=== PATIENT | female | born 1950 | race Caucasian/White ===

== ENCOUNTER 2024-01-13 06:17 | Inpatient (IN) | payer MEDICARE, OTHER ==
[~2024-01-13] VITALS: Ht 157.5 cm; Wt 81.6 kg
[2024-01-13] MEDS ORDERED: ANESTHESIA TRAY IN PYXIS 1 EA TRAY MC ONE (07:06)
[2024-01-13] MEDS ORDERED: VANCOMYCIN 1 GM VIAL ONE (07:06)
[2024-01-13] MEDS ORDERED: LIDOCAINE 2%-EPI 1:100,000 30 ML VIAL ONE (07:06)
[2024-01-13] MEDS ORDERED: dexaMETHasone SOD PHOSPHATE 2 ML ONE (07:06)
[2024-01-13] MEDS ORDERED: FENTANYL PF 100MCG/2ML AMPUL ONE (07:17)
[2024-01-13] MEDS ORDERED: OXYMETAZOLINE HCL NASAL SPRAY 30 ML BOTTLE NS ONE (07:17)
[2024-01-13] MEDS ORDERED: Magnesium 1 GM/2 ML VIAL ONE (07:17)
[2024-01-13] MEDS ORDERED: FAMOTIDINE/PF INJ 20 MG/2 ML VIAL IV ONE (07:18)
[2024-01-13] MEDS ORDERED: ROCURONIUM BROMIDE 50 MG/5 ML ONE (07:18)
[2024-01-13] MEDS ORDERED: LABETALOL 20 MG/4 ML VIAL ONE (09:29)
[2024-01-13] MEDS ORDERED: CELLULOSE,OXIDIZED 1 EA PACK MC ONE (10:54)
[2024-01-13] MEDS ORDERED: CELLULOSE,OXIDIZED 1 PKT EACH MC ONE (10:54)
[2024-01-13] MEDS: ONDANSETRON HCL/PF 4 MG/2 ML VIAL IVP PRN (12:25)
[2024-01-13] MEDS: HYDROMORPHONE 1 MG/1 ML DISP.SYRIN IV PRN (12:26)
[2024-01-13] MEDS ORDERED: ONDANSETRON HCL/PF 4 MG/2 ML VIAL IVP PRN (13:00)
[2024-01-13] MEDS ORDERED: ACETAMINOPHEN 325 MG TABLET PO PRN (13:00)
[2024-01-13] MEDS ORDERED: MORPHINE SULFATE INJ 2 MG/ML DISP.SYRIN IV PRN (13:00)
[2024-01-13] MEDS ORDERED: MAGNESIUM HYDROXIDE 30 ML UDC PO PRN (13:00)
[2024-01-13] MEDS: IV NS 0.9% 1,000 ML IV PRN (13:19)
[2024-01-13] MEDS ORDERED: MECL-182 PO (13:25)
[2024-01-13] MEDS ORDERED: TRAM100T39 PO (13:25)
[2024-01-13] MEDS ORDERED: VALS160T2 PO (13:25)
[2024-01-13] MEDS ORDERED: FAMO20TA80 PO (13:25)
[2024-01-13 16:00] VITALS: BP 137/78; TEMP 97.7; O2SAT 94
[2024-01-13] MEDS ORDERED: LORAZEPAM 1 MG TABLET PO PRN (16:00)
[2024-01-13] MEDS: LORAZEPAM 1 MG TABLET PO ONE (16:24)
[2024-01-13] MEDS ORDERED: VALSARTAN 80 MG TABLET PO PRN (16:30)
[2024-01-13] MEDS: VANCOMYCIN 1 GM in IV D5W 250ml IV SCH (18:39)
[2024-01-13] MEDS: ACETAMINOPHEN 325 MG TABLET PO PRN (19:47)
[2024-01-13 20:00] VITALS: BP 124/74; TEMP 97.7; O2SAT 96
[2024-01-14 07:00] VITALS: BP 134/72; TEMP 98.4; O2SAT 95
[2024-01-14 07:02] LABS: BASOPHILS % (AUTO) 0.1 % (0.0-2.0); HEMATOCRIT 36 % (33-45); HEMOGLOBIN 12.1 g/dL (11.5-14.8); LYMPHOCYTES # (AUTO) 1.3 K/uL (0.8-4.8); LYMPHOCYTES % (AUTO) 14.6 % (20.0-44.0); MEAN CORPUSCULAR HEMOGLOBIN 31 PG (26.0-33.0); MEAN CORPUSCULAR HGB CONC 34 g/dl (31.0-36.0); MEAN CORPUSCULAR VOLUME 92 fL (82-100); MONOCYTES # (AUTO) 0.7 K/uL (0.1-1.30); MONOCYTES % (AUTO) 8.1 % (2.0-12.0); NEUTROPHILS # (AUTO) 6.9 K/uL (1.8-8.9); NEUTROPHILS % (AUTO) 77.2 % (43.0-81.0); PLATELET COUNT (AUTO) 196 K/uL (150-450); RED BLOOD CELL COUNT(AUTO) 3.93 MIL/uL (4.0-5.2); RED CELL DISTRIBUTION WIDTH 13.5 % (11.5-15.0); WHITE BLOOD COUNT (AUTO) 8.9 K/uL (4.3-11.0)
[2024-01-14 07:33] LABS: ALANINE AMINOTRANSFERASE 9 U/L (12-78); ALBUMIN 2.9 g/dL (3.4-5.0); ALKALINE PHOSPHATASE 53 U/L (46-116); ASPARTATE AMINOTRANSFERASE 7 U/L (15-37); BILIRUBIN,TOTAL 0.7 mg/dL (0.2-1.0); CALCIUM, SERUM 8.8 mg/dL (8.5-10.1); CARBON DIOXIDE 23 mmol/L (21-32); CHLORIDE 107 mmol/L (98-107); CREATININE 0.4 mg/dL (0.6-1.3); GLUCOSE 130 mg/dL (74-106); MAGNESIUM 2.3 mg/dL (1.8-2.4); PHOSPHORUS 2.7 mg/dL (2.5-4.9); POTASSIUM 4.1 mmol/L (3.5-5.1); SODIUM SERUM 140 mmol/L (136-145); TOTAL PROTEIN, SERUM 6.4 g/dL (6.4-8.2); UREA NITROGEN, BLOOD 9 mg/dL (7-18)
== END 2024-01-14 12:30 | disposition home or self-care (01) | DRG 517 ==
LOC: DS 06:17 → MED 12:21
PROVIDERS: ADMIT Internal Medicine; ATTEND Internal Medicine
PROC: 0NUR0JZ Supplement Maxilla with Synthetic Substitute, Open Approach (ICD-10-PCS; principal; 2024-01-13)
PROC: 0NUR07Z Supplement Maxilla with Autologous Tissue Substitute, Open Approach (ICD-10-PCS; 2024-01-13)
PROC: 0NHV04Z Insertion of Internal Fixation Device into Left Mandible, Open Approach (ICD-10-PCS; 2024-01-13)
PROC: 0NHR04Z Insertion of Internal Fixation Device into Maxilla, Open Approach (ICD-10-PCS; 2024-01-13)
PROC: 0NHT04Z Insertion of Internal Fixation Device into Right Mandible, Open Approach (ICD-10-PCS; 2024-01-13)
PROC: 0NUV07Z Supplement Left Mandible with Autologous Tissue Substitute, Open Approach (ICD-10-PCS; 2024-01-13)
PROC: 0NUT07Z Supplement Right Mandible with Autologous Tissue Substitute, Open Approach (ICD-10-PCS; 2024-01-13)
PROC: 0CB40ZZ Excision of Buccal Mucosa, Open Approach (ICD-10-PCS; 2024-01-13)
PROC: 0NBV0ZX Excision of Left Mandible, Open Approach, Diagnostic (ICD-10-PCS; 2024-01-13)
PROC: 0NBR0ZX Excision of Maxilla, Open Approach, Diagnostic (ICD-10-PCS; 2024-01-13)
PROC: 0NBT0ZX Excision of Right Mandible, Open Approach, Diagnostic (ICD-10-PCS; 2024-01-13)
DX: S02.40CK Maxillary fracture, right side, subsequent encounter for fracture with nonunion (principal); S02.40DK Maxillary fracture, left side, subsequent encounter for fracture with nonunion; S02.69XK Fracture of mandible of other specified site, subsequent encounter for fracture with nonunion; M27.2 Inflammatory conditions of jaws; D11.9 Benign neoplasm of major salivary gland, unspecified; F41.9 Anxiety disorder, unspecified; I10 Essential (primary) hypertension; I25.10 Atherosclerotic heart disease of native coronary artery without angina pectoris; X58.XXXD Exposure to other specified factors, subsequent encounter; T18.0XXA Foreign body in mouth, initial encounter
CPT/HCPCS: 36415; 71045-TC; 80053-TC; 83735-TC; 84100-TC; 85025-TC; A4223; C1713; G0378; J1100; J1170; J2405; J2704; J2765; J3010; J3370; J3475; J3490; J7030; J7060

== ENCOUNTER → 2024-06-08 | Day surgery (SDC) | payer MEDICARE, OTHER ==
[~2024-06-08] MED LIST: ACETAMINOPHEN 325 MG TABLET PO PRN; EPINEPHRINE (1:10,000) SYRINGE 1 MG/10 ML DISP.SYRIN ONE; FAMO20TA80 PO; FENTANYL PF 100MCG/2ML AMPUL ONE; HYDROMORPHONE 1 MG/1 ML DISP.SYRIN IV PRN; IV NS 0.9% 1,000 ML IV PRN; LIDOCAINE 2%-EPI 1:100,000 30 ML VIAL ONE; MECL-182 PO; ONDANSETRON HCL/PF 4 MG/2 ML VIAL IV PRN; TRAM100T39 PO; VALS160T2 PO; VANCOMYCIN 1 GM VIAL ONE; dexaMETHasone SOD PHOSPHATE 2 ML ONE
== END | disposition home or self-care (01) ==
LOC: DS 08:37
PROVIDERS: ATTEND Dentist Oral and Maxillofacial Surgery
DX: K13.79 Other lesions of oral mucosa (principal); T84.69XA Infection and inflammatory reaction due to internal fixation device of other site, initial encounter; K12.2 Cellulitis and abscess of mouth; K12.30 Oral mucositis (ulcerative), unspecified; K09.9 Cyst of oral region, unspecified; I25.10 Atherosclerotic heart disease of native coronary artery without angina pectoris; I10 Essential (primary) hypertension; M19.90 Unspecified osteoarthritis, unspecified site; K21.9 Gastro-esophageal reflux disease without esophagitis; Z90.710 Acquired absence of both cervix and uterus; Z90.49 Acquired absence of other specified parts of digestive tract; Y83.1 Surgical operation with implant of artificial internal device as the cause of abnormal reaction of the patient, or of later complication, without mention of misadventure at the time of the procedure
CPT/HCPCS: 20680; 21046; 88300; 88305; 88311; A4338; J0171; J0461; J0690; J1100; J2310; J2704; J3010; J3370; J3490; J7030